=== PATIENT | female | born 1950 | race African-American/Black ===

== ENCOUNTER 2024-10-13 13:39 | Inpatient (IN) | payer BC, MEDICARE ==
[~2024-10-13] VITALS: Ht 162.6 cm; Wt 71.7 kg
[2024-10-13 14:14] LABS: BASOPHILS % 0.3 % (0.0-2.0); HEMATOCRIT. 35.2 % (36.0-48.0); HEMOGLOBIN. 11.7 g/dL (12.0-16.0); LYMPHOCYTES % 16.9 % (20.0-50.0); MEAN CORPUSCULAR HEMOGLOBIN 32.8 pg (28.0-32.0); MEAN CORPUSCULAR HGB CONC 33.2 g/dL (31.0-37.0); MEAN CORPUSCULAR VOLUME 98.8 fL (81.0-99.0); MEAN PLATELET VOLUME 8.8 fl (7.4-10.4); NEUTROPHILS % 69.8 % (40.0-76.0); PLATELET 160 x1000/uL (130-400); RED BLOOD CELL COUNT 3.56 mill/uL (4.2-5.4); RED CELL DISTRIBUTION WIDTH 13.9 % (11.6-14.6); WHITE BLOOD COUNT 4.3 x1000/uL (4.5-11.0)
[2024-10-13 14:27] LABS: CALCIUM 9.2 mg/dL (8.7-10.4); CARBON DIOXIDE 21 mEq/L (21-32); CHLORIDE 108 mEq/L (98-107); POTASSIUM 4.8 mEq/L (3.5-5.1); SODIUM 138 mEq/L (136-145)
[2024-10-13 14:31] LABS: CREATININE 1.2 mg/dL (0.6-1.0); GLUCOSE 139 mg/dL (70-105)
[2024-10-13 14:32] LABS: UREA NITROGEN BLOOD 29 mg/dL (9-23)
[2024-10-13 14:33] LABS: ALANINE AMINOTRANSFERASE 16 IU/L (10-49); ALBUMIN 3.6 g/dL (3.2-4.8); ASPARTATE AMINOTRANSFERASE 21 IU/L (<34); BILIRUBIN DIRECT 0.1 mg/dL (<=3.0); BILIRUBIN TOTAL 0.5 mg/dL (0.1-1.0); PROTEIN TOTAL 6.1 g/dL (6.0-8.3)
[2024-10-13 14:35] LABS: TROPONIN I HIGH SENSITIVITY < 4 ng/L (3.0-34)
[2024-10-13] MEDS: SODIUM CHLORIDE 0.9% 1,000 ML IV ONE (14:52)
[2024-10-13] MEDS ORDERED: ONDANSETRON HCL 4MG/2ML INJ IV PRN (15:00)
[2024-10-13] MEDS ORDERED: ACETAMINOPHEN 325MG TABLET PO PRN (15:00)
[2024-10-13 15:26] LABS: INR 1.1; PROTHROMBIN TIME 11.4 sec (9.6-11.0)
[2024-10-13] MEDS: CEFTRIAXONE 1GM/50ML 50 ML IV NR (15:32)
[2024-10-13] MEDS: MIDODRINE HCL 5MG TABLET PO SCH (17:07)
[2024-10-13 17:54] LABS: CLARITY URINE CLEAR (CLEAR); COLOR URINE YELLOW (YELLOW); GLUCOSE URINE NEGATIVE (NEGATIVE); KETONES URINE NEGATIVE (NEGATIVE); LEUKOCYTE ESTERASE URINE NEGATIVE (NEGATIVE); NITRITE URINE NEGATIVE (NEGATIVE); OCCULT BLOOD URINE NEGATIVE (NEGATIVE); PROTEIN URINE NEGATIVE (NEGATIVE); SPECIFIC GRAVITY URINE 1.009 (1.005-1.030); UROBILINOGEN URINE 0.2 E.U./dL (0.2-1.0)
[2024-10-14] VITALS (8 sets, daily range): BP systolic 106–140; BP diastolic 54–93; PULSE 57–93; RESP 17–19; TEMP 35.7–37; O2SAT 99–100
[2024-10-14 01:02] LABS: TROPONIN I HIGH SENSITIVITY 5 ng/L (3.0-34)
[2024-10-14] MEDS: SODIUM CHLORIDE 0.9% 1,000 ML IV SCH (05:59)
[2024-10-14 06:44] LABS: BASOPHILS % 0.3 % (0.0-2.0); DIFFERENTIAL COMMENT 0; EOSINOPHILS % 1.2 % (0.0-5.0); HEMATOCRIT. 34.8 % (36.0-48.0); HEMOGLOBIN. 11.4 g/dL (12.0-16.0); LYMPHOCYTES % 21.9 % (20.0-50.0); MEAN CORPUSCULAR HEMOGLOBIN 33.3 pg (28.0-32.0); MEAN CORPUSCULAR HGB CONC 32.8 g/dL (31.0-37.0); MEAN CORPUSCULAR VOLUME 101.7 fL (81.0-99.0); MEAN PLATELET VOLUME 8.2 fl (7.4-10.4); MONOCYTES % 10.6 % (2.0-8.0); PLATELET 147 x1000/uL (130-400); RED BLOOD CELL COUNT 3.42 mill/uL (4.2-5.4); RED CELL DISTRIBUTION WIDTH 14.1 % (11.6-14.6); WHITE BLOOD COUNT 4.5 x1000/uL (4.5-11.0)
[2024-10-14 06:50] LABS: CARBON DIOXIDE 20 mEq/L (21-32); CHLORIDE 111 mEq/L (98-107); POTASSIUM 4.1 mEq/L (3.5-5.1); SODIUM 141 mEq/L (136-145)
[2024-10-14 06:51] LABS: CALCIUM 9.2 mg/dL (8.7-10.4)
[2024-10-14 06:54] LABS: TROPONIN I HIGH SENSITIVITY 7 ng/L (3.0-34)
[2024-10-14 06:56] LABS: CREATININE 0.8 mg/dL (0.6-1.0); GLUCOSE 79 mg/dL (70-105); UREA NITROGEN BLOOD 25 mg/dL (9-23)
[2024-10-14 06:57] LABS: THYROID STIMULATING HORMONE 0.88 uIU/mL (0.55-4.78)
[2024-10-14] MEDS: CEFTRIAXONE 1GM/50ML 50ML IV SCH (16:00)
[2024-10-14] MEDS ORDERED: LOSA25TA26 MT ×2 (20:01)
[2024-10-14] MEDS ORDERED: PRAZ5CAP2 MT (20:01)
[2024-10-14] MEDS ORDERED: PRAZ1CAP5 MT (20:01)
[2024-10-14] MEDS ORDERED: NAPR-681 MT (20:01)
[2024-10-14] MEDS ORDERED: HYDR50TA40 MT (20:01)
[2024-10-14] MEDS ORDERED: METO100T16 MT (20:01)
[2024-10-14] MEDS ORDERED: AMLO5TAB88 MT (20:01)
[2024-10-15] VITALS: BP 141/75; PULSE 67; RESP 16; TEMP 37; O2SAT 100
[2024-10-15 02:02] VITALS: BP 141/75; PULSE 67; RESP 16; TEMP 37; O2SAT 100
[2024-10-15 04:00] VITALS: BP 139/72; RESP 16; TEMP 36.5; O2SAT 98
[2024-10-15 08:00] VITALS: BP 143/71; PULSE 72; RESP 18; TEMP 36.7; O2SAT 98
[2024-10-15 12:00] VITALS: BP 137/93; PULSE 74; RESP 18; TEMP 36.8; O2SAT 97
[2024-10-15 15:11] VITALS: BP 137/83; PULSE 74; TEMP 98.3; O2SAT 97
== END 2024-10-15 15:55 | disposition home or self-care (01) | DRG 641 ==
LOC: ER 13:39 → 5WST 18:48 → EDBEDREQTM 18:51 → EDBEDREQ 18:51
PROVIDERS: ADMIT Internal Medicine Nephrology; ATTEND Internal Medicine Nephrology
DX: E86.0 Dehydration (principal); N17.9 Acute kidney failure, unspecified; G90.89 Other disorders of autonomic nervous system; E87.20 Acidosis, unspecified; I95.2 Hypotension due to drugs; D64.9 Anemia, unspecified; R00.1 Bradycardia, unspecified; R94.31 Abnormal electrocardiogram [ECG] [EKG]; I10 Essential (primary) hypertension; T44.7X5A Adverse effect of beta-adrenoreceptor antagonists, initial encounter; Z87.891 Personal history of nicotine dependence; Z79.899 Other long term (current) drug therapy; Y92.89 Other specified places as the place of occurrence of the external cause
CPT/HCPCS: 36415; 71045; 80048; 80076; 81003; 82962; 83036; 84439; 84443; 84481; 84484; 85025; 93005; 93306; 93970; 97161; 97166; 99291; A4606; J0696; J7030